=== PATIENT | female | born 1985 | race Caucasian/White ===

== ENCOUNTER 2023-12-23 06:17 | Day surgery (SDC) | payer OTHER, MEDICAID ==
[~2023-12-23] VITALS: Ht 167.6 cm; Wt 68.9 kg
[2023-12-23] MEDS ORDERED: fentaNYL citrate 0.05 MG/ML VIAL ONE (07:21)
[2023-12-23] MEDS: fentaNYL citrate 0.05 MG/ML VIAL IVP ONE (07:38)
[2023-12-23] MEDS: LIDOCAINE 2% 100 MG/5 ML UJET TP ONE (07:43)
== END 2023-12-23 08:35 | disposition home or self-care (01) ==
LOC: MDS 06:17 → MMU 06:27 → MDS 08:35
PROVIDERS: ATTEND Internal Medicine Gastroenterology
DX: K62.5 Hemorrhage of anus and rectum (principal); K64.8 Other hemorrhoids; N18.6 End stage renal disease; Z79.899 Other long term (current) drug therapy; Z94.0 Kidney transplant status
CPT/HCPCS: 45378; J3010